=== PATIENT | female | born 1990 | race Caucasian/White ===

== ENCOUNTER 2017-09-18 12:31 | Emergency (ER) | payer OTHER ==
[2017-09-18] MEDS ORDERED: NORMAL SALINE 1000 ML 1,000 ML IV ONE (12:42)
--- NOTE | 2017-09-18 12:43 | ER Document Report ---
ED Medical Screen (RME) - General Chief Complaint: High Blood Pressure Stated Complaint: BLOOD PRESSURE ISSUES Time Seen by Provider: 09/18/17 12:42 Notes: Patient complains of palpitations dizziness and "I just do not feel right". She is also had a headache. Patient's vital signs at triage were noticed to be abnormal. She denies any chronic medical conditions or chronic medications. She states previously in [place] she was told that she may be hyperthyroid but that no further workup was ever performed. TRAVEL OUTSIDE OF THE [place] IN LAST 30 DAYS: No - Related Data Allergies/Adverse Reactions: Cephalosporins Allergy (Verified 09/18/17 12:38) Past Medical History - Social History Frequency of alcohol use: Occasional Drug Abuse: None Renal/ Medical History: Denies: Hx Peritoneal Dialysis Physical Exam - Vital signs Vitals: Temp Pulse Resp BP Pulse Ox 98.3 F 116 H 16 151/94 H 100 09/18/17 12:35 09/18/17 12:35 09/18/17 12:35 09/18/17 12:35 09/18/17 12:35 Course - Vital Signs Vital signs: Temp Pulse Resp BP Pulse Ox 98.3 F 116 H 16 151/94 H 100 09/18/17 12:35 09/18/17 12:35 09/18/17 12:35 09/18/17 12:35 09/18/17 12:35
[2017-09-18 13:09] LABS: ABSOLUTE LYMPHOCYTES (AUTO) 1.3 10^3/uL (0.5-4.7); ABSOLUTE MONOCYTES (AUTO) 0.2 10^3/uL (0.1-1.4); ABSOLUTE NEUT (AUTO) 2.8 10^3/uL (1.7-8.2); BASOPHILS % (AUTO) 0.7 % (0-2); EOSINOPHILS % (AUTO) 0.6 % (0-6); HEMATOCRIT 41.5 % (36.0-47.0); HEMOGLOBIN 14.8 g/dL (12.0-15.5); HGB HCT DIFFERENCE 2.9; LYMPHOCYTES % (AUTO) 29.2 % (13-45); MEAN CORPUSCULAR HEMOGLOBIN 31.3 pg (27.0-33.4); MEAN CORPUSCULAR HGB CONC 35.8 g/dL (32.0-36.0); MEAN CORPUSCULAR VOLUME 87 fl (80-97); MONOCYTES % (AUTO) 5.5 % (3-13); RED BLOOD COUNT 4.74 10^6/uL (3.72-5.28); WHITE BLOOD COUNT 4.4 10^3/uL (4.0-10.5)
[2017-09-18 13:11] LABS: APPEARANCE,URINE CLEAR; BILIRUBIN,URINE NEGATIVE (NEGATIVE); GLUCOSE, URINE NEGATIVE (NEGATIVE); KETONES,URINE 20 mg/dL (NEGATIVE); LEUKOCYTE ESTERASE,URINE NEGATIVE (NEGATIVE); NITRITE,URINE NEGATIVE (NEGATIVE); PROTEIN,URINE NEGATIVE (NEGATIVE); URINE SPECIFIC GRAVITY 1.004; UROBILINOGEN,URINE NEGATIVE mg/dL (<2.0)
[2017-09-18 13:21] LABS: ALANINE AMINOTRANSFERASE 26 U/L (9-52); ALKALINE PHOSPHATASE 68 U/L (38-126); ANION GAP 16 (5-19); ASPARTATE AMINO TRANSFERASE 20 U/L (14-36); BILIRUBIN,DIRECT 0.3 mg/dL (0.0-0.4); BILIRUBIN,TOTAL 0.7 mg/dL (0.2-1.3); BLOOD UREA NITROGEN 5 mg/dL (7-20); CALCIUM 9.4 mg/dL (8.4-10.2); CARBON DIOXIDE 25 mmol/L (22-30); CHLORIDE 92 mmol/L (98-107); CREATININE RESULT 0.53 mg/dL (0.52-1.25); GLUCOSE 90 mg/dL (75-110); POTASSIUM 3.7 mmol/L (3.6-5.0); SODIUM 132.8 mmol/L (137-145); TOTAL PROTEIN 7.9 g/dL (6.3-8.2)
--- NOTE | 2017-09-18 13:23 | EKG REPORT ---
SEVERITY:- OTHERWISE NORMAL ECG - SINUS TACHYCARDIA : Confirmed by: Woo Greene MD 18-Sep-2017 13:22:27
[2017-09-18 15:02] VITALS: BP 141/95
--- NOTE | 2017-09-18 15:07 | ER Document Report ---
ED Blood Pressure Problem <SALONI NAVARRO - Last Filed: 09/18/17 16:00> - General Mode of Arrival: Ambulatory Information source: Patient TRAVEL OUTSIDE OF THE [place] IN LAST 30 DAYS: No - HPI Patient complains to provider of: High blood pressure Onset: Other <QUINTON BEDOYA - Last Filed: 09/18/17 17:20> - General Chief Complaint: High Blood Pressure Stated Complaint: BLOOD PRESSURE ISSUES Time Seen by Provider: 09/18/17 12:42 Notes: Patient is a 27 year old female that presents to the emergency department today with complaints of elevated blood pressures and an elevated heart rate for the last two days. Patient states yesterday she she had a bad posterior headache. Patient states over the last two days she has had intermittent episodes of "feeling tingly like she was going to pass out". Patient states three weeks ago she had a URI which subsided but she has been coughing the last two days. Patient states while living in [place] her doctor thought she may have hypothyroidism based off a low TSH but not T3/T4 testing was completed. Patient denies fevers. (QUINTON BEDOYA) - Related Data Allergies/Adverse Reactions: Cephalosporins Allergy (Verified 09/18/17 12:38) Past Medical History - General Information source: Patient - Social History Smoking Status: Never Smoker Cigarette use (# per day): No Frequency of alcohol use: Occasional Drug Abuse: None Lives with: Family Family History: Reviewed & Not Pertinent Patient has suicidal ideation: No Patient has homicidal ideation: No - Medical History Medical History: Negative Surgical Hx: Negative <QUINTON BEDOYA - Last Filed: 09/18/17 17:20> Review of Systems - Review of Systems Constitutional: denies: Fever EENT: No symptoms reported Cardiovascular: See HPI, Other - elevated blood pressure, elevated heart rate Respiratory: No symptoms reported Gastrointestinal: No symptoms reported Genitourinary: No symptoms reported Female Genitourinary: No symptoms reported Musculoskeletal: No symptoms reported Skin: No symptoms reported Hematologic/Lymphatic: No symptoms reported Neurological/Psychological: See HPI, Headaches -: Yes All other systems reviewed and negative <QUINTON BEDOYA - Last Filed: 09/18/17 17:20> Physical Exam <SALONI NAVARRO - Last Filed: 09/18/17 16:00> - Vital signs Interpretation: Hypertensive, Tachycardic <QUINTON BEDOYA - Last Filed: 09/18/17 17:20> - Vital signs Vitals: Temp Pulse Resp BP Pulse Ox 98.3 F 116 H 16 151/94 H 100 09/18/17 12:35 09/18/17 12:35 09/18/17 12:35 09/18/17 12:35 09/18/17 12:35 - Notes Notes: Physical Exam: General: Alert, appears well. HEENT: Normocephalic. Atraumatic. PERRL. Extraocular movements intact. Oropharynx clear. TMs are clear bilaterally. Neck: Supple. Non-tender. Respiratory: No respiratory distress. Clear and equal breath sounds bilaterally. Cardiovascular: Tachycardic, regular rhythm. Abdominal: Normal Inspection. Non-tender. No distension. Normal Bowel Sounds. Back: Non-tender. No deformity or step off. Extremities: Moves all four extremities. Upper extremities: Normal inspection. Normal ROM. Lower extremities: Normal inspection. No edema. Normal ROM. Neurological: Normal cognition. AAOx4. Normal speech. Psychological: Normal affect. Normal Mood. Skin: Warm. Dry. Normal color. (QUINTON BEDOYA) Course - Laboratory Result Diagrams: 09/18/17 12:53 09/18/17 12:53 <SALONI NAVARRO - Last Filed: 09/18/17 16:00> - Laboratory Result Diagrams: 09/18/17 12:53 09/18/17 12:53 <QUINTON BEDOYA - Last Filed: 09/18/17 17:20> - Re-evaluation Re-evalutation: 09/18/17 16:00 At this time the patient's pulse seems to bounce around between about 92 and 104. Her blood pressure is 131/88. T3 and T4 are in the normal range. We will try low-dose beta-jacquelyn, recommend complete avoidance of caffeine or any other stimulants, and plenty of sleep and rest. She should check her pulse and pressure in the morning and if it is normal not take the beta-jacquelyn, if it goes up during the day then take the beta-jacquelyn. If this continues to be a problem for more than 1-2 days, she should follow- up with primary care to have a more thorough workup started. (SALONI NAVARRO) - Vital Signs Vital signs: Temp Pulse Resp BP Pulse Ox 98.3 F 116 H 14 141/95 H 100 09/18/17 12:35 09/18/17 12:35 09/18/17 14:36 09/18/17 14:36 09/18/17 12:35 - Laboratory Laboratory results interpreted by me: 09/18/17 09/18/17 09/18/17 12:53 12:53 12:53 Sodium 132.8 L Chloride 92 L BUN 5 L TSH 0.36 L Urine Ketones 20 H Discharge <SALONI NAVARRO - Last Filed: 09/18/17 16:00> <QUINTON BEDOYA - Last Filed: 09/18/17 17:20> - Discharge Clinical Impression: Palpitations, Tachycardia, Elevated blood pressure reading Condition: Stable Disposition: HOME, SELF-CARE Additional Instructions: Palpitations (Irregular/Rapid Heartrate) Irregular or rapid heartbeat is called "palpitation." To diagnose the cause of palpitation, we have to "catch it in the act" with an EKG. Sinus Tachycardia: This is a rapid (but NORMAL) rhythm that can be due to fever, pain, anxiety, lack of sleep, over-exertion, or drugs. Cold medications, caffeine, and diet pills are particularly likely to cause tachycardia. Usually , all that's required is rest, reassurance, and avoiding caffeine, alcohol, nicotine, and unnecessary medicines. Contact the physician at once if you develop persistent lightheadedness, shortness of breath, chest pain, or swelling of the ankles. //////////////////////////////////////////////////////////////////////////////// //////////////////////////////////////////////////////////////////////////////// ///////////////// Take medication as prescribed for elevated heart rate or elevated blood pressure. Get plenty of rest and drink plenty of fluids. Avoid caffeine and any other stimulants. Do not take the medication if your blood pressure and pulse are normal. Follow-up with your doctor this week for recheck and further evaluation if the problem persists. RETURN TO THE EMERGENCY ROOM IF ANY NEW OR WORSENING SYMPTOMS. Prescriptions: Atenolol [Tenormin] 25 mg PO Q12 PRN #30 tablet PRN Reason: Referrals: DEBBI PEPE JOINT YARNER [Primary Care Provider] - Follow up in 3-5 days Vicentaibe Attestation: 09/18/17 15:38 I personally performed the services described in the documentation, reviewed and edited the documentation which was dictated to the scribe in my presence, and it accurately records my words and actions. (SALONI NAVARRO) Scribe Documentation - Scribe Written by Amrik:: Amrik Couch, 09/18/2017 1719 acting as scribe for :: Maggy <QUINTON BEDOYA - Last Filed: 09/18/17 17:20>
[2017-09-18 15:45] LABS: FREE T3 5.02 pg/mL (2.77-5.27)
== END 2017-09-18 16:40 | disposition home or self-care (01) ==
LOC: ER 12:31
DX: R00.2 Palpitations (principal); R00.0 Tachycardia, unspecified; R03.0 Elevated blood-pressure reading, without diagnosis of hypertension
CPT/HCPCS: 93005; 99283; 96360; 36415; 84439; 84443; 85025; 81025; 80053; 81001; 84481; 93010; J7030

== ENCOUNTER → 2017-12-11 | Outpatient (CLI) | payer OTHER | LOC: OD 10:38 | PROVIDERS: ATTEND Internal Medicine | DX: E78.5 Hyperlipidemia, unspecified (principal); Z79.899 Other long term (current) drug therapy | CPT/HCPCS: 36415; 84443 ==

== ENCOUNTER → 2018-01-02 | Outpatient (CLI) | payer OTHER ==
--- NOTE | 2018-01-02 10:53 | XCELERA REPORT ---
[address] [address] Transthoracic Echocardiogram Report Name: KAMI HARRELL Age: 27 yrs Gender: Female : 1990 Patient Status: Outpatient Patient Location: Study Date: 01/02/2018 07:02 AM Height: 62 in Weight: 115 lb BSA: 1.5 m2 Procedure: A complete two-dimensional transthoracic echocardiogram was performed (2D, M-mode, spectral and color flow Doppler). The study was technically adequate with some images being suboptimal in quality. Reason For Study: DYSPNEA Ordering Physician: SUNIL SEGURA Performed By: Saniya Astorga Interpretation Summary The left ventricular ejection fraction is normal. Doppler measurements suggest normal left ventricular diastolic function There is normal left ventricular wall thickness. The left ventricle is grossly normal size. Wall motion cannot be accurately commented on, but no definite regional wall motion abnormalities noted. The right ventricle is not well visualized secondary to technical limitations Possibly borderline dilated. The right ventricular systolic function is normal. The left atrial size is normal. The right atrium is normal. There is a mild amount of mitral regurgitation There is no mitral valve stenosis. No aortic regurgitation is present. There is no aortic valve stenosis There is no tricuspid stenosis. No tricuspid regurgitation. There is no pulmonic valvular stenosis. There is no pulmonic valvular regurgitation. The aortic root is not well visualized but is probably normal size. The inferior vena cava appeared normal and decreased > 50% with respiration (RAP 5-10 mmHg) There is no pericardial effusion. MMode/2D Measurements & Calculations RVDd: 1.9 cm LVIDd: 4.6 cm FS: 33.5 % Ao root diam: 2.1 cm IVSd: 0.64 cm LVIDs: 3.1 cm EDV(Teich): 97.7 ml LVPWd: 0.63 cm ESV(Teich): 36.8 ml Ao root area: 3.3 cm2 EF(Teich): 62.4 % Doppler Measurements & Calculations MV E max fabio: MV dec slope: Ao V2 max: LV V1 max P.0 cm/sec 127.9 cm/sec 4.4 mmHg MV A max fabio: 560.7 cm/sec2 Ao max PG: LV V1 max: 84.9 cm/sec MV dec time: 6.5 mmHg 105.2 cm/sec MV E/A: 1.1 0.16 sec PA V2 max: 96.4 cm/sec PA max P.7 mmHg Left Ventricle The left ventricle is grossly normal size. There is normal left ventricular wall thickness. The left ventricular ejection fraction is normal. Doppler measurements suggest normal left ventricular diastolic function. Wall motion cannot be accurately commented on, but no definite regional wall motion abnormalities noted. Right Ventricle The right ventricle is not well visualized secondary to technical limitations. Possibly borderline dilated. The right ventricular systolic function is normal. Atria The right atrium is normal. The left atrial size is normal. Interarterial septum not well visualized and not well dopplered. Cannot comment on ASD/PFO presence. Mitral Valve The mitral valve is grossly normal. There is no mitral valve stenosis. There is a mild amount of mitral regurgitation. Aortic Valve The aortic valve is grossly normal. The aortic valve is trileaflet. There is no aortic valve stenosis. No aortic regurgitation is present. Tricuspid Valve The tricuspid valve is not well visualized, but is grossly normal. There is no tricuspid stenosis. No tricuspid regurgitation. Pulmonic Valve The pulmonic valve is not well visualized. There is no pulmonic valvular stenosis. There is no pulmonic valvular regurgitation. Great Vessels The aortic root is not well visualized but is probably normal size. The inferior vena cava appeared normal and decreased > 50% with respiration (RAP 5-10 mmHg). Effusions There is no pericardial effusion. : SUNIL SEGURA > Hasmukh Paul
== END ==
LOC: SP 07:34
PROVIDERS: ATTEND Specialist
DX: R06.02 Shortness of breath (principal)
CPT/HCPCS: 93306